=== PATIENT | female | born 1950 | race Caucasian/White ===

== ENCOUNTER 2016-06-05 06:50 | Emergency (ER) | payer OTHER, BC ==
[~2016-06-05] VITALS: Ht 154.9 cm; Wt 60.0 kg
[~2016-06-05 06:50] MED LIST: ADVIL200 M1 PO; ASMANEX TW200 MICRO1 IH; BACTRIM,SEPT1 TABLET PO; MONTELUKAST SOD10 MG PO; PERCOCET 5-3251 EACH PO; SPIRIVA1 INHALATI IH; VENTOLIN HFA18 GM IH
[2016-06-05] MEDS ORDERED: BACTRIM,SEPT1 TABLET PO (07:29)
[2016-06-05 07:38] VITALS: BP 153/67
== END 2016-06-05 07:39 | disposition home or self-care (01) ==
LOC: EME 06:50
DX: S61.412A Laceration without foreign body of left hand, initial encounter (principal); W26.8XXA Contact with other sharp object(s), not elsewhere classified, initial encounter; Y99.0 Civilian activity done for income or pay; Y92.512 Supermarket, store or market as the place of occurrence of the external cause; Z23 Encounter for immunization; J45.909 Unspecified asthma, uncomplicated; Z72.0 Tobacco use
CPT/HCPCS: 99281; 99284

== ENCOUNTER → 2017-11-07 | Outpatient (CLI) | payer OTHER | END | disposition home or self-care (01) | LOC: CDC 10:03 | DX: Z01.810 Encounter for preprocedural cardiovascular examination (principal); K42.9 Umbilical hernia without obstruction or gangrene | CPT/HCPCS: 93000 ==

== ENCOUNTER 2017-11-13 08:50 | Day surgery (SDC) | payer OTHER ==
[~2017-11-13] VITALS: Ht 154.9 cm; Wt 63.0 kg
[~2017-11-13 08:50] MED LIST changes: +ASPIR 8181 M1 PO; +CHANTIX1 EACH PO; +INCRUSE ELLI62.5 MCG IH; +SINGULAIR10 MG PO
[2017-11-13] MEDS ORDERED: SYMBICORT60 INHALA1 IH (10:05)
[2017-11-13 10:15] VITALS: BP 161/74
[2017-11-13] MEDS ORDERED: TORADOL10 MG PO ×2 (12:33→12:35)
[2017-11-13 14:22] VITALS: BP 129/61
[2017-11-13 15:03] VITALS: BP 131/62
== END 2017-11-13 15:14 | disposition home or self-care (01) ==
LOC: SDC 08:50
DX: K42.9 Umbilical hernia without obstruction or gangrene (principal); J44.9 Chronic obstructive pulmonary disease, unspecified; F17.200 Nicotine dependence, unspecified, uncomplicated
CPT/HCPCS: C1781; J0131; J1170; J1885; J2250; J3010; J7120; Q0175